=== PATIENT | female | born 1980 ===

== ENCOUNTER 2018-05-05 07:45 | Inpatient (IN) | payer OTHER ==
[~2018-05-05] VITALS: Ht 152.4 cm; Wt 73.0 kg
--- NOTE | ~2018-05-05 | OR ---
[facility] [address] [place], [place] [address] Draft DATE OF OPERATION: 05/12/2018 SURGEON: Kelly Goodman DO PREOPERATIVE DIAGNOSES: 1. Term intrauterine . 2. History of prior section. 3. Failed 1-hour glucose with normal 3 hour. 4. Group B streptococcus negative, Rh positive. POSTOPERATIVE DIAGNOSES: 1. Term intrauterine . 2. History of prior section. 3. Failed 1-hour glucose with normal 3 hour. 4. Group B streptococcus negative, Rh positive. PROCEDURE PERFORMED: Repeat low transverse delivery. SAFETY ENGINEER: Aaron Melgar M.D. ANESTHESIA: Spinal. ESTIMATED BLOOD LOSS: 500 mL. COMPLICATIONS: None. FINDINGS: Viable female born in the LOP position, weighing 6 pounds and 5 ounces with Apgars of 8 and 8 at one and five minutes respectively. Patient with normal tubes and ovaries bilaterally. She does have a somewhat thin lower uterine segment and had some scarring of the bladder to the lower uterine segment that was easily taken down. No other intraabdominal adhesions were noted. INDICATIONS: Ms. aMrtins is a very pleasant 38-year-old G2, P1, white female with intrauterine PATIENT NAME: LINETTE MARTINS OPERATIVE REPORT DATE OF : 84 REPORT #: [id number] PHYSICIAN: KELLY GOODMAN DO PCP: KELLY GOODMAN DO REPORT IS CONFIDENTIAL AND NOT TO BE RELEASED WITHOUT AUTHORIZATION [facility] [address] [place], [place] [address] Draft at 39 weeks and 2 days' gestation, who presents for repeat low transverse delivery. 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 The patient was consented for repeat low transverse delivery and all questions were answered to the best of my ability. Risks, benefits, and alternatives were discussed in detail. Patient wishes to proceed with the procedure. DESCRIPTION OF PROCEDURE: The patient was taken to the operating room where time-out was performed to confirm correct patient and correct procedure. Spinal anesthesia was adequately established. Patient was then prepped and draped in the supine position with a bump on her right hip. A Almaraz catheter was inserted. Ancef 2 g was given preoperatively per guidelines and no heparin was indicated. Once spinal anesthesia was confirmed, a Pfannenstiel skin incision was made through the existing scar and carried down to the fascia in the midline. The fascia was nicked in the midline and fascial incision was extended bilaterally using Sierra scissors. The fascia was grasped with Corrine's, elevated, and underlying rectus muscles were dissected off bluntly and sharply. The rectus muscles were then divided in the midline. The peritoneum was grasped with hemostats, elevated, and entered sharply. Peritoneal incision was extended bilaterally using blunt dissection. The bladder was noted to be scarred high from prior procedure and a bladder flap was then created to avoid tearing the serosa. After bladder flap was created, Chu uterine retractor was then placed without difficulty. No other intraabdominal adhesions were noted. Hysterotomy was then performed using a surgical scalpel and amniotic fluid was noted to be clear. The hysterotomy was extended bilaterally using blunt dissection and the surgeon's hand was placed in the uterine cavity. The vertex was noted in the LOP position and was elevated into the abdomen, delivered with the assistance of fundal pressure. No nuchal cord was identified and the remainder of the delivered easily with the assistance of fundal pressure. The was vigorous and cried upon delivery. The cord was doubly clamped and cut and the handed to waiting pediatric team for further care. Cord blood was obtained for routine analysis. A section of cord was also obtained. The placenta was then manually expressed intact with a centrally inserted three-vessel cord. The uterus was cleared of any remaining products of conception or clot and the hysterotomy was then repaired using 0-Vicryl in a running locked manner. The lower uterine segment was noted to be quite thin. A second imbricating suture of 0-Vicryl was then applied and there is a small amount of tearing of the lower uterine segment with careful suturing. This was made hemostatic and reinforced with several sutures of 0-Vicryl. The pelvis was then irrigated and found to be hemostatic. Evicel was then applied to the lower uterine segment. The Chu retractor was removed. The tubes and ovaries were examined and found to be normal. ACell sheet was then applied to the lower uterine segment after ensuring hemostasis. Peritoneum was then reapproximated using 2-0 Vicryl in a running nonlocked stitch. Rectus muscles were then reapproximated using 0-Vicryl and two PATIENT NAME: LINETTE MARTINS OPERATIVE REPORT DATE OF : 84 REPORT #: [id number] PHYSICIAN: KELLY GOODMAN DO PCP: KELLY GOODMAN DO REPORT IS CONFIDENTIAL AND NOT TO BE RELEASED WITHOUT AUTHORIZATION [address] [address] Draft interrupted sutures. The rectus sheath was examined, found to be hemostatic, and ACell powder was then applied. Fascia was then reapproximated using 0-Vicryl in a running nonlocked manner. The subcutaneous layer was examined and found to be hemostatic after use of Bovie electrocautery. It was irrigated and again found to be hemostatic. Skin was then reapproximated using Quill suture and subcuticular stitch with good cosmesis and hemostasis. The uterus was then Crede'd for scant amount of blood. Patient was then taken to PACU in stable condition. Sponge, needle, and instrument count were correct x2 at the end of procedure. Dr. Melgar was present and participated in all portions of the procedure. Kelly Goodman DO JDW/MODL /[id number] Copies: ~ PATIENT NAME: LINETTE MARTINS OPERATIVE REPORT DATE OF : 84 REPORT #: [id number] PHYSICIAN: KELLY GOODMAN DO PCP: KELLY GOODMAN DO REPORT IS CONFIDENTIAL AND NOT TO BE RELEASED WITHOUT AUTHORIZATION
--- OUTSIDE RECORDS SUMMARY | ~2018-05-05 | XMS | Clinical Summary ---
Demographics + + + | Address | [address] | | | [place] [address] | + + + | Home Phone | | + + + | Preferred Language | Unknown | + + + | Marital Status | Single | + + + | Pentecostalism Affiliation | Unknown | + + + | Race | Unknown | + + + | Ethnic Group | Unknown | + + + Author + + + | Author | [facility] | | | and [place] | + + + | Organization | [facility] | | | and [place] | + + + | Address | Unknown | + + + | Phone | Unavailable | + + + Support + + +---------+ + | Name | Relationship | Address | Phone | + + +---------+ + | Quang Judge | ECON | Unknown | | + + +---------+ + Care Team Providers + +------+ + | Care Tie Mill Operator Name | Role | Phone | + +------+ + | No, Physician | PP | Unavailable | + +------+ + Allergies Not on File Current Medications Not on file Active Problems Not on file Social History + +-------+ +--------+------+ | Tobacco Use | Types | Packs/Day | Years | Date | | | | | Used | | + +-------+ +--------+------+ | Never Assessed | | | | | + +-------+ +--------+------+ + + + | Sex Assigned at | Date Recorded | | | | + + + | Not on file | | + + + Last Filed Vital Signs + + + + | Vital Sign | Reading | Time Taken | + + + + | Blood Pressure | 112/64 | 07/05/20161315 PST | + + + + | Pulse | 110 | 07/05/20161315 PST | + + + + | Temperature | 36.8 C (98.3 F) | 07/05/20161315 PST | + + + + | Respiratory Rate | 18 | 07/05/20161315 PST | + + + + | Oxygen Saturation | 95% | 07/05/20161315 PST | + + + + | Inhaled Oxygen | - | - | | Concentration | | | + + + + | Weight | 65.9 kg (145 lb 4.9 | 07/05/20161315 PST | | | oz) | | + + + + | Height | 154.9 cm (5' 0.98") | 07/05/20161315 PST | + + + + | Body Mass Index | 27.47 | 07/05/20161315 PST | + + + + Plan of Treatment + + + + + | Health Maintenance | Due Date | Last Done | Comments | + + + + + | Vaccine: | | | | | Dtap/Tdap/Td (1 - | 1 | | | | Tdap) | | | | + + + + + | Cervical Cancer | | | | | Screening (Pap) | 2 | | | + + + + + | Vaccine: Influenza | | | | | (#1) | 8 | | | + + + + + Results Not on filefrom Last 3 Months
--- NOTE | 2018-05-12 08:32 | NUR ---
05/12/18 0832 Chiqui Blackburn 0819 PATIENT ALERT AND ORIENTED X3. RESP EVEN AND UNLABORED, ROOM AIR SATS 97%. PATIENT DENIES PAIN, C/O SLIGHT NAUSEA. HOB FLAT. SO AT BEDSIDE. FBC RN WITH BABY AT WARMER.
--- NOTE | 2018-05-13 09:47 | PR ---
[facility] [address] [place], [place] [address] Signed PP Progress Notes Datetime Report Generated by CPN: 05/13/2018 09:47 SUBJECTIVE: [id number] Pain: Within normal limits Nausea/Vomiting: Denies Vital Signs: [id number] Vital Signs: Reviewed; Within Normal Limits Notable Details: Hgb 11.0 EXAM: [id number] Cardiovascular: Normal Respiratory: Normal Abdomen/Uterus: Normal Lochia: Normal Vulva/Perineum: Not Done Breasts: Not Done CVA Tenderness: Normal Extremities: Normal Incision: Normal Progress: Normal Exam Comments: Fundus firm U-2 firm nontender. Incision well healing IMPRESSION/PLAN/PROCEDURES: [id number] Impression: Normal progression Plan: Continue present management Progress Notes: Pt seen and examined. Doing well. Starting to ambulate and angeles just removed by RN. Tolerating full diet. Pain and lochia minimal. well. No fevers/chills/lightheadedness. Borderline oligouria yesterday evening that resolved w/ IVF and holding toradol. Plan: continue pp care. Anticipate d/c home tomorrow. All questions answered Signing Physician: Kelly Goodman DO Copies: ~ *Electronically Signed* 05/13/18 0947 KELLY GOODMAN DO PATIENT NAME: LINETTE MARTINS PROGRESS NOTE DATE OF : 84 PHYSICIAN: KELLY GOODMAN DO RPT #: [id number] REPORT IS CONFIDENTIAL AND NOT TO BE RELEASED WITHOUT AUTHORIZATION
--- NOTE | 2018-05-14 08:56 | PR ---
[facility] [address] [facility] [place], [place] [address] Signed PP Progress Notes Datetime Report Generated by CPN: 05/14/2018 08:56 SUBJECTIVE: [id number] Pain: Within normal limits Nausea/Vomiting: Denies Flatus: Yes Vital Signs: [id number] Vital Signs: Reviewed; Within Normal Limits Notable Details: Hgb 11.0 EXAM: [id number] Cardiovascular: Normal Respiratory: Normal Abdomen/Uterus: Normal Lochia: Normal Vulva/Perineum: Not Done Breasts: Not Done CVA Tenderness: Normal Extremities: Normal Incision: Normal Progress: Normal Exam Comments: Fundus firm U-2 nontender. Incision well healing. IMPRESSION/PLAN/PROCEDURES: [id number] Impression: Normal progression Plan: Remove bob Progress Notes: Pt seen and examined. Doing well. Ambulating, voiding, and tolerating full diet. Pain and lochia minimal. well. No fevers/chills/lightheadedness. Planning vasectomy for pp contraception. Desires d/c home today. F/U 2 wks. Reviewed d/c instructions and wound care in detail. Signing Physician: Kelly Goodman DO Copies: ~ *Electronically Signed* 05/14/18 0856 KELLY GOODMAN DO PATIENT NAME: LINETTE MARTINS PROGRESS NOTE DATE OF : 84 PHYSICIAN: KELLY GOODMAN DO RPT #: [id number] REPORT IS CONFIDENTIAL AND NOT TO BE RELEASED WITHOUT AUTHORIZATION
== END 2018-05-14 16:40 | disposition home or self-care (01) | DRG 788 ==
LOC: FBC 05-12 05:24
PROVIDERS: ADMIT Obstetrics & Gynecology
PROC: 10D00Z1 Extraction of Products of Conception, Low, Open Approach (ICD-10-PCS; principal; 2018-05-12 06:45)
DX: O34.211 Maternal care for low transverse scar from previous cesarean delivery (principal); N85.8 Other specified noninflammatory disorders of uterus; O28.2 Abnormal cytological finding on antenatal screening of mother; O99.814 Abnormal glucose complicating childbirth; R73.09 Other abnormal glucose; Z3A.39 39 weeks gestation of pregnancy; Z37.0 Single live birth
CPT/HCPCS: 01961; 36415; 85027; C1763; J0690; J1885; J2250; J2274; J2300; J2370; J2405; J2590; J7040; J7120

== ENCOUNTER 2024-12-07 18:12 | Emergency (ER) | payer OTHER ==
[~2024-12-07] VITALS: Ht 152.4 cm; Wt 60.5 kg
[2024-12-07] MEDS ORDERED: CYANOCOBAL1000 MCG/M IM (18:23)
[2024-12-07] MEDS ORDERED: ONDANSETRON ODT4 MG PO (18:23)
[2024-12-07] MEDS ORDERED: ALPRAZOLAM0.5 MG PO (18:23)
[2024-12-07] MEDS ORDERED: METHYLPHENIDATE10 M1 PO (18:24)
[2024-12-07 19:42] VITALS: BP 121/76
== END 2024-12-07 19:44 | disposition home or self-care (01) ==
LOC: ED 18:12
DX: S01.112A Laceration without foreign body of left eyelid and periocular area, initial encounter (principal); V09.9XXA Pedestrian injured in unspecified transport accident, initial encounter; Z79.899 Other long term (current) drug therapy
CPT/HCPCS: 12011; 99282-25